=== PATIENT | male | born 1975 | race Caucasian/White ===

== ENCOUNTER 2017-07-27 16:19 | Inpatient (IN) ==
--- NOTE | 2017-07-27 16:27 | Emergency Department Note ---
Disposition Clinical Impression: Suicidal ideation, Medical clearance for psychiatric admission Laceration of right wrist Qualifiers: Encounter type: initial encounter Qualified Code(s): S61.511A - Laceration without foreign body of right wrist, initial encounter Disposition: Admitted As Inpatient Condition: Fair Time of Disposition: 19:05 Psych HPI - General Chief Complaint: ED Psychiatric Symptoms Stated Complaint: SI Time Seen by Provider: 07/27/17 16:21 Source: patient, family, EMS Mode of arrival: EMS Limitations: no limitations Nursing Notes Reviewed: Yes Vital Signs Reviewed: Yes - History of Present Illness HPI Narrative: 42-year-old male with bipolar, schizophrenia, presents complaining of wrist laceration suicidal ideation, patient is alcoholic was drinking last night and took a razor blade to his right wrist, this is bleeding, he came in to the ED with suicidal ideation, after his mom brought him in. He has recently more depressed after the divorce of his last month. He denies any SI at this time however he recently just had a slit wrist with suicidal attempt. Patient has 3 out of 10 wrist pain where he was cut, he had this repaired with simple interrupted sutures, he denies weakness in his fingers, weakness in whirley operator strength, or paresthesias in his hand. Patient denies SI and HI and hallucinations at this time. Pt complaint: suicidal ideation Onset (ago): hour(s) History of similar episodes: Yes Improves with: none Worsens with: none Context: recent alcohol abuse Alleged intoxication: Yes Associated Psychiatric Symptoms: suicidal ideation - Related Data Home Medications Medication Instructions Recorded Confirmed Albuterol Sulfate [Proair Hfa] 2 puff IH Q4-6H PRN 04/05/17 07/27/17 BuPROPion SR (12 HR) [Wellbutrin 100 mg PO BID 04/05/17 07/27/17 SR] Paroxetine HCl [Paxil] 40 mg PO DAILY 04/05/17 07/27/17 traZODone [TraZODone] 50 mg PO HS 04/05/17 07/27/17 Moxifloxacin OPTH Drops [Vigamox] 1 drop OP QID 07/26/17 07/27/17 Varenicline Tartrate [Chantix] 1 mg PO BID 07/26/17 07/27/17 Buspirone HCl [Buspar] 7.5 mg PO BID 07/27/17 07/27/17 Gabapentin [Neurontin] 1,200 mg PO TID 07/27/17 07/27/17 Naltrexone HCl [Revia] 50 mg PO DAILY 07/27/17 07/27/17 Omeprazole [PriLOSEC] 20 mg PO DAILY 07/27/17 07/27/17 PrednisoLONE Acetate 1% Opth 1 drop OP QID 07/27/17 07/27/17 [PredFORTE 1%] Allergies Allergy/AdvReac Type Severity Reaction Status Date / Time Beef Containing Products Allergy Intermediate Vomiting Verified 07/27/17 16:20 All systems ED: reviewed and negative except as stated. Review of Systems: As Per HPI Constitutional: Denies: fever, chills Eyes: Denies: eye pain ENT ED: Denies: ear pain Cardiovascular: Denies: chest pain Respiratory: Denies: cough, dyspnea Gastrointestinal: Denies: abdominal pain Genitourinary: Denies: urgency Musculoskeletal: Denies: back pain Integumentary: Reports: as per HPI, other (lacertion). Denies: rash, abrasion Neurological: Denies: headache Psychiatric: Denies: anxiety Endocrine: Denies: fatigue Past Medical History - Past Medical History Attestation: Yes The following information was validated with the patient. Source: patient Medical history: Reports: other Surgical history: Reports: other Psychiatric history: Reports: anxiety, depression, prior suicide attempt - Social History Smoking Status: Current every day smoker Smokeless Tobacco Status: No Alcohol use: Reports: recent Drug use: Reports: none Physical Exam Constitutional: NAD, vital signs reviewed and wnl Eyes: PERRLA, sclera anicteric ENT & Mouth: MMM Neck: normal inspection, neck is supple Resp: CTA bilaterally, no resp distress CV: RRR, no m/g/r GI: normal inspection, soft, no guarding or rigidity MSK: Laceration to the right proximal wrist with no other deformity or muscular skeletal injury, good range of motion bilateral fingers snuffbox tenderness no other injuries neurovascularly intact distally Neuro: A&O3, CNII-XII grossly intact, OWUSU out of 5 muscle strength in extension and flexion 5 over 5 whirley operator strength, median ulnar and radial nerves intact the right hand Psych: +SI Skin: Laceration repaired with 8 simple interrupted Prolene sutures to the right anterior wrist just proximal to the proximal wrist crease good hemostasis. - General Limitations: no limitations Course Course Narrative: 42-year-old male with suicidal attempt with laceration to right wrist, this is evaluated at bedside by orthopedic surgeon Dr. Kruse and determined to have no surgical intervention indicated, patient will be medically cleared and plan is for one A to evaluate the patient for admission given suicide attempt. - Consultations Consultation #1: Orhto consulted for eval in ED [facility] to evaluate patient and clear medically Vital Signs Temperature 98.1 F 07/27/17 16:26 Pulse Rate 66 07/27/17 16:26 Respiratory Rate 16 07/27/17 16:26 Blood Pressure 169/101 07/27/17 16:26 O2 Sat by Pulse Oximetry 98 07/27/17 16:26 Temperature 98.2 F 07/28/17 19:46 Pulse Rate 88 07/28/17 19:46 Respiratory Rate 18 07/28/17 19:46 Blood Pressure 138/97 07/28/17 19:46 O2 Sat by Pulse Oximetry 99 07/27/17 19:28 Oxygen Delivery Oxygen Delivery Room Air Psych - Lab Data Result diagrams: 07/27/17 16:49 Lab Results 07/27/17 Range/Units 16:49 Hgb 17.3 H (12.9-16.9) g/dL Hct 50.6 H (37.5-50.1) % Psychiatric Medical Clearance - Medical Clearance Checklist Medical History: Tobacco abuse (Acute) Hypokalemia (Acute) Hypomagnesemia (Acute) Suicidal ideation (Acute) Laceration of right wrist (Acute) Major depressive disorder (Acute) Alcohol dependence (Acute) Acute kidney injury (Inactive) Alcohol intoxication (Inactive) Alcohol withdrawal (Inactive) Laceration of right forearm with tendon involvement (Inactive) Lactic acidosis (Inactive) Nausea and vomiting (Inactive) Suicidal behavior (Inactive) No Social History Section defined Current Vitals: Last Vital Signs Temp 98.2 F 07/28/17 19:46 Pulse 88 07/28/17 19:46 Resp 18 07/28/17 19:46 BP 138/97 07/28/17 19:46 Pulse Ox 99 07/27/17 19:28 Abnormal Labs: Abnormal lab results Hgb 17.3 g/dL (12.9-16.9) H 07/27/17 16:49 Hct 50.6 % (37.5-50.1) H 07/27/17 16:49 S.B.ARupal - S.Yoan Transition of Care: 1A to eval and dispo pending, Medically cleared per ortho Situation: Demographics, MOA Background: Presenting Complaint, Relevant PMH, Meds, & Allergies Assessment: Vital Signs, Course and respsone to treatment, Exam Concerns, Patient/Family Expectation, Pertinant Lab Results, Outstanding Labs Recommendation: Barrier(s) to disposition, Recommendation based on pending studies, treatments, or consults S.B.A.RTroy Report Given to: Malik Peng Repor Time: 19:06 Attestation Statement - Attestation Attestation: I examined this patient and my medical decision-making was reviewed with the Resident Physician, Dr. Max. I agree with the documented findings, disposition and treatment plan as described except to the extent set forth below. Pt is a 42 yo wm, who was transferred to [place] from [place] ED after he was initially evaluated over 24 hrs ago for acute ETOH intoxication, SI with attempt by self inflicted R wrist laceration. Pt arrives awake, alert and oriented, currently denying SI, and no other complaints. Dr. Kruse notified by [facility], and consulted to evaluate pt for any potential surgical issue with R wrist. Wrist has been sutured, and no active bleeding on arrival. RUE NVI and no weakness or concerns on clinical evaluation for any tendon injury. I agree with PE findings as documented. VSS. Dr. Kruse evaluated pt and found exam wnl, no surgical issues. Pt had labs at [facility], wnl. Pt medically cleared. Pt signed out to Dr. Peng, awaiting 1 A eval, and final disposition.
--- NOTE | 2017-07-27 16:58 | Orthopedic Consult Note ---
Date of Encounter: 07/27/17 Time of Encounter: 16:40 Assessment and Plan (1) Laceration of right wrist Current Visit: Yes Status: Acute Laceration has been repaired with simple sutures. Keep incision covered with dry gauze dressing until healed. He has full ROM of wrist/digits. No further orthopedic intervention needed at this time. Will need follow up with PCP for suture removal in 12-14 days. Qualifiers: Encounter type: initial encounter Qualified Code(s): S61.511A - Laceration without foreign body of right wrist, initial encounter History of Present Illness Chief complaint: right wrist pain HPI: Mr. Hadley is a 42 year old male who presented to [place] from [place] ER for right wrist laceration. Patient has h/o bipolar and schizophrenia. He was drinking alcohol last night when he cut his wrist with a razor blade. He states that when he drinks he does not know what he is doing. He denies any current suicidal ideation. Laceration was repaired at [facility]. Patient has some pain around in the incision but denies any numbness, tingling or restricted motion to extremity. Denies any other pains or symptoms at this time. Past Med Surg Social Fam HX - Past Medical History Medical history: other Psychiatric history: anxiety, depression, prior suicide attempt - Past Surgical History Surgical History: other - Social History Smoking Status: Current every day smoker Smokeless Tobacco Status: No Alcohol use: recent Drug use: none Medications and Allergies Albuterol Sulfate [Proair Hfa] 2 puff IH Q4-6H PRN 04/05/17 [History] BuPROPion SR (12 HR) [Wellbutrin SR] 100 mg PO BID 04/05/17 [History] Gabapentin [Neurontin] 300 mg PO TID 04/05/17 [History] Paroxetine HCl [Paxil] 40 mg PO DAILY 04/05/17 [History] traZODone [TraZODone] 50 mg PO HS 04/05/17 [History] Chlordiazepoxide [Librium] 5 mg PO DAILY 10 Days capsule 04/09/17 [Rx] Folic Acid 1 mg PO DAILY #30 tab 04/09/17 [Rx] Thiamine (B-1) [Vitamin B-1] 100 mg PO DAILY #30 tab 04/09/17 [Rx] Gentamicin/Prednisol AC [Pred-G 1% Eye Drops] 5 ml RIGHT EYE QID 07/26/17 [ History] Moxifloxacin OPTH Drops [Vigamox] 1 drop RIGHT EYE QID 07/26/17 [History] Varenicline Tartrate [Chantix] 1 mg PO BID 07/26/17 [History] 3 Allergy/AdvReac Type Severity Reaction Status Date / Time Beef Containing Products Allergy Intermediate Vomiting Verified 07/27/17 16:20 All Systems Reviewed: A 10-system review of systems was performed and is negative for pertinent findings except as documented above in the HPI. - Constitutional Constitutional: as per HPI - Musculoskeletal Musculoskeletal: as per HPI Physical Exam - Constitutional Vitals: Temp Pulse Resp BP Pulse Ox 98.1 F 64 16 169/101 98 07/27/17 16:26 07/27/17 16:36 07/27/17 16:36 07/27/17 16:36 07/27/17 16:36 - Wrist & Hand right Location of pain: volar wrist (roughly 3cm laceration closed with simple sutures located to anterior wrist with no surrounding erythema or drainage. Full flexion and extension of hand/wrist and all digits. Good abduction/ adduction of fingers. Can make ok sign and thumbs up. full global professional strength. brisk cap refill, NV intact. ) Results - Labs Labs: All other labs normal. Consult Discharge Plan - Plan - Attending Attestation Case and plan of care discussed with supervising physician who was available for all aspects of care.
[2017-07-27 17:16] LABS: Hematocrit 50.6 % (37.5-50.1); Hemoglobin 17.3 g/dL (12.9-16.9)
--- NOTE | 2017-07-27 20:28 | Emergency Department Note ---
Disposition Clinical Impression: Suicidal ideation Laceration of right wrist Qualifiers: Encounter type: initial encounter Qualified Code(s): S61.511A - Laceration without foreign body of right wrist, initial encounter Disposition: Admitted As Inpatient Condition: Fair Referrals: NONE,PCP [Primary Care Provider] - Forms: ED Satisfaction Letter Time of Disposition: 20:28 Psych HPI - General Chief Complaint: ED Psychiatric Symptoms Stated Complaint: SI Time Seen by Provider: 07/27/17 16:21 Source: patient, family, EMS Mode of arrival: EMS - History of Present Illness Improves with: none Worsens with: none - Related Data Home Medications Medication Instructions Recorded Confirmed Albuterol Sulfate [Proair Hfa] 2 puff IH Q4-6H PRN 04/05/17 07/26/17 BuPROPion SR (12 HR) [Wellbutrin 100 mg PO BID 04/05/17 07/26/17 SR] Gabapentin [Neurontin] 300 mg PO TID 04/05/17 07/26/17 Paroxetine HCl [Paxil] 40 mg PO DAILY 04/05/17 07/26/17 traZODone [TraZODone] 50 mg PO HS 04/05/17 07/26/17 Gentamicin/Prednisol AC [Pred-G 1% 5 ml RIGHT EYE QID 07/26/17 07/26/17 Eye Drops] Moxifloxacin OPTH Drops [Vigamox] 1 drop RIGHT EYE QID 07/26/17 07/26/17 Varenicline Tartrate [Chantix] 1 mg PO BID 07/26/17 07/26/17 Previous Rx's Medication Instructions Recorded Chlordiazepoxide [Librium] 5 mg PO DAILY 10 Days capsule 04/09/17 Folic Acid 1 mg PO DAILY #30 tab 04/09/17 Thiamine (B-1) [Vitamin B-1] 100 mg PO DAILY #30 tab 04/09/17 Allergies Allergy/AdvReac Type Severity Reaction Status Date / Time Beef Containing Products Allergy Intermediate Vomiting Verified 07/27/17 16:20 Constitutional: Denies: fever, chills Eyes: Denies: eye pain ENT ED: Denies: ear pain Cardiovascular: Denies: chest pain Respiratory: Denies: cough, dyspnea Gastrointestinal: Denies: abdominal pain Genitourinary: Denies: urgency Musculoskeletal: Denies: back pain Integumentary: Reports: as per HPI, other (lacertion). Denies: rash, abrasion Neurological: Denies: headache Psychiatric: Denies: anxiety Endocrine: Denies: fatigue Past Medical History - Past Medical History Medical history: Reports: other Surgical history: Reports: other Psychiatric history: Reports: anxiety, depression, prior suicide attempt - Social History Smoking Status: Current every day smoker Smokeless Tobacco Status: No Alcohol use: Reports: recent Drug use: Reports: none Physical Exam - General Limitations: no limitations General appearance: alert, in no apparent distress Course Course Narrative: This patient was signed out at shift change from Dr. Max and Dr. Dara Pimentel. Please refer to their notes for complete details of the history and physical examination. At shift change patient has been medically cleared and is awaiting psychiatric evaluation by the [address] psychiatry service. Patient was seen and evaluated in the emergency department by the psychiatry service and is being admitted to the [address] psychiatry unit. [place] slip signed. Vital Signs Temperature 98.1 F 07/27/17 16:26 Pulse Rate 66 07/27/17 16:26 Respiratory Rate 16 07/27/17 16:26 Blood Pressure 169/101 07/27/17 16:26 O2 Sat by Pulse Oximetry 98 07/27/17 16:26 Temperature 98.1 F 07/27/17 16:26 Pulse Rate 103 07/27/17 19:28 Respiratory Rate 18 07/27/17 19:28 Blood Pressure 145/98 07/27/17 19:28 O2 Sat by Pulse Oximetry 99 07/27/17 19:28 Oxygen Delivery Oxygen Delivery Room Air Psych - Lab Data Result diagrams: 07/27/17 16:49 Lab Results 07/27/17 Range/Units 16:49 Hgb 17.3 H (12.9-16.9) g/dL Hct 50.6 H (37.5-50.1) % Psychiatric Medical Clearance - Medical Clearance Checklist Medical History: Tobacco abuse (Acute) Hypokalemia (Acute) Hypomagnesemia (Acute) Laceration of right forearm with tendon involvement (Acute) Suicidal behavior (Acute) Alcohol intoxication (Acute) Suicidal ideation (Acute) Laceration of right wrist (Acute) Acute kidney injury (Inactive) Alcohol withdrawal (Inactive) Lactic acidosis (Inactive) Nausea and vomiting (Inactive) No Social History Section defined Current Vitals: Last Vital Signs Temp 98.1 F 07/27/17 16:26 Pulse 103 07/27/17 19:28 Resp 18 07/27/17 19:28 BP 145/98 07/27/17 19:28 Pulse Ox 99 07/27/17 19:28 Abnormal Labs: Abnormal lab results Hgb 17.3 g/dL (12.9-16.9) H 07/27/17 16:49 Hct 50.6 % (37.5-50.1) H 07/27/17 16:49 Statement of Medical Clearance: I have evaluated the patient, reviewed diagnostic information, and certify that the patient's medical condition is sufficiently stable that transfer to the psychiatric unit does not pose a significant risk of deterioration.
[2017-07-27] MEDS ORDERED: Mag Hydrox/Al Hydrox/Simeth 30 ML UDC PO PRN (21:51)
[2017-07-27] MEDS ORDERED: *HR* LORazepam 2 MG/ML VIAL IM PRN (21:51)
[2017-07-27] MEDS ORDERED: *HR* LORazepam 1 MG TABLET PO PRN (21:51)
[2017-07-27] MEDS ORDERED: Acetaminophen 325 MG TABLET PO PRN (21:51)
[2017-07-27] MEDS ORDERED: MOM Conc 10 ML UD.LIQ PO PRN (21:51)
[2017-07-27] MEDS ORDERED: Haloperidol Lactate 5 MG/ML VIAL IM PRN (21:51)
[2017-07-27] MEDS: traZODone 50 MG TABLET PO PRN (22:15)
[2017-07-27] MEDS: hydrOXYzine pamoate 25 MG CAPSULE PO PRN (22:15)
[2017-07-27] MEDS ORDERED: *HR* LORazepam 1 MG TABLET PO ONE (23:40)
[2017-07-27] MEDS: Gabapentin 400 MG CAPSULE PO SCH (23:54)
[2017-07-28] MEDS: Moxifloxacin OPTH Drops 3 ML BOTTLE BOTH EYES SCH ×5 (01:33→20:42)
[2017-07-28] MEDS: PrednisoLONE Acetate 1% Opth 5 ML BOTTLE BOTH EYES SCH ×5 (01:34→20:44)
[2017-07-28] MEDS: Nicotine 21 MG PATCH.TD24 TD SCH (09:08)
[2017-07-28] MEDS: Gabapentin 400 MG CAPSULE PO SCH ×3 (09:08→20:44)
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
[2017-07-28] MEDS: hydrOXYzine pamoate 25 MG CAPSULE PO PRN (20:44)
[2017-07-28] MEDS ORDERED: traZODone 50 MG TABLET PO SCH (21:00)
[2017-07-29] MEDS: hydrOXYzine pamoate 25 MG CAPSULE PO PRN (01:07)
[2017-07-29] MEDS: traZODone 50 MG TABLET PO PRN (01:07)
[2017-07-29] MEDS: Gabapentin 400 MG CAPSULE PO SCH (08:23)
[2017-07-29] MEDS: Nicotine 21 MG PATCH.TD24 TD SCH (08:23)
[2017-07-29] MEDS: PrednisoLONE Acetate 1% Opth 5 ML BOTTLE BOTH EYES SCH (08:24)
[2017-07-29] MEDS: Moxifloxacin OPTH Drops 3 ML BOTTLE BOTH EYES SCH (08:24)
[2017-07-29 09:40] VITALS: BP 122/88
--- NOTE | 2017-07-29 10:02 | Discharge Summary ---
Date of Encounter: 07/29/17 Time of Encounter: 08:35 Diagnosis - Discharge Diagnosis (1) Major depressive disorder Priority: Primary Status: Acute Qualifiers: Major depression recurrence: recurrent Active/Remission status: currently active Major depression episode severity: moderate Qualified Code(s): F33.1 - Major depressive disorder, recurrent, moderate (2) Alcohol dependence Priority: Secondary Status: Acute Qualifiers: Substance use status: uncomplicated Qualified Code(s): F10.20 - Alcohol dependence, uncomplicated Medications - Discharge Medications Prescriptions: hydrOXYzine pamoate [HydrOXYzine Pamoate] 25 mg PO TID PRN #30 capsule PRN Reason: Anxiety Paroxetine [Paxil] 60 mg PO DAILY #30 tablet Albuterol Sulfate [Proair Hfa] 2 puff IH Q4-6H PRN 04/05/17 [History] traZODone [TraZODone] 50 mg PO HS 04/05/17 [History] Moxifloxacin OPTH Drops [Vigamox] 1 drop OP QID 07/26/17 [History] Varenicline Tartrate [Chantix] 1 mg PO BID 07/26/17 [History] Buspirone HCl [Buspar] 7.5 mg PO BID 07/27/17 [History] Gabapentin [Neurontin] 1,200 mg PO TID 07/27/17 [History] Omeprazole [PriLOSEC] 20 mg PO DAILY 07/27/17 [History] PrednisoLONE Acetate 1% Opth [PredFORTE 1%] 1 drop OP QID 07/27/17 [History] Paroxetine [Paxil] 60 mg PO DAILY #30 tablet 07/29/17 [Rx] hydrOXYzine pamoate [HydrOXYzine Pamoate] 25 mg PO TID PRN #30 capsule 07/29/17 [Rx] 3 Allergy/AdvReac Type Severity Reaction Status Date / Time Beef Containing Products Allergy Intermediate Vomiting Verified 07/27/17 16:20 Provider Date of admission: 07/27/17 20:30 Primary care physician: PCP NONE Discharging clinician: Jill Rogel Assessment and Plan - Patient/Caregiver Discharge Instructions Activity: resume usual activities as tolerated Diet: regular diet - Follow up Plan Follow up with: Jesus Manuel Akht[facility] [Outside] - 09/02/17 10:00 am (The above appointment is with Dr. Wallis for outpatient psychiatric assessment and medication management services. Please arrive 15 minutes early to complete paperwork. Please bring your insurance card, photo ID and medications in their original bottles. If you do not have insurance, bring proof of income to apply for the sliding fee scale. If you are unable to keep this appointment, 24 hour business notice of cancellation is expected. The above appointment(s) reflects first availability. You may contact the office regularly to check for cancellations that may allow you to be seen sooner.) Inocencia Coe CNP [Advanced Practice Nurse] - 08/05/17 9:00 am (The above appointment is with Inocencia Coe for primary healthcare and medication management services.) Functional capacity at discharge: independent ambulation Overall status at discharge: Stable Disposition: Home, Self-Care Hospital Course Hospital course: Mr. Hadley is a 42 year old male with a history of depression and alcohol dependence who presented to the hospital after an attempted after drinking heavily. Patient was admitted to for psychiatric stabilization. He was incorporated into the therapeutic milieu and offer group and individual as well as recreational therapy. He was also offered psychoeducational materials and supportive therapy. She is placed on suicide precautions and close observation per unit protocol. Patient was restarted on his Paxil and has not checked and Wellbutrin were discontinued. Patient had been drinking and he is aware he is not supposed to take the naltrexone and drink. He had been sober for about 4 months but states he felt frustrated and angry and started to drink and then start to make bad choices. He cut himself while intoxicated but does not remember doing this intentionally to kill himself. He immediately called his mother for help who ended up bringing the hospital. Patient does admit to severe depression but states that he does not want to kill himself. He has a granddaughter and a daughter for whom he cares very much. Patient is willing to move in with his mom in order to have more supervision and be closer to people. Patient states a lot of his troubles happens when he is alone. Patient reported some improvement in his mood during the hospital stay. His Paxil was increased to 60 mg by mouth daily and patient tolerated this well. He did use trazodone for sleep. At the time of discharge she denied suicidal or homicidal ideation, intent or plan. He verbalizes intention to follow up with his doctor for further med adjustments and to continue with treatment. He is discharged in stable condition. - Time Spent with Patient Total time spent providing and/or coordinating discharge services: Greater than 30 minutes Quality - Multiple Antipsychotics Patient discharged on 2 or more antipsychotic medications: No Procedures - Procedures Procedures: Medication Management, Crisis Stabilization, Supportive Therapy, Group Therapy, Psychoeducational Therapy Mental Status Exam - Mental Status Exam Patient orientation: Yes Person, Yes Time, Yes Place Level of alertness: Alert Patient appearance: Appropriate, Well Groomed Behavior: calm, cooperative Psychomotor activity: Normal Eye contact: Maintains Eye Contact Mood description: Euthymic/stable Affect description: congruent with mood, full range Speech pattern: Normal rate, Normal rhythm, Normal tone Speech Volume: Normal Thought process: Linear, Goal Oriented Thought Content: No Suicidal ideation, No Homicidal ideation, No Overt delusions Perceptual Disturbances: No Auditory hallucinations, No Visual hallucinations Judgment: Limited Insight: Partial
== END 2017-07-29 11:10 | disposition home or self-care (01) | DRG 885 ==
LOC: EMEROO 16:19 → 1ANU 20:30
PROVIDERS: ADMIT Student in an Organized Health Care Education/Training Program; ATTEND Student in an Organized Health Care Education/Training Program